=== PATIENT | male | born 1980 | race Caucasian/White ===

== ENCOUNTER 2016-10-05 22:51 | Emergency (ER) | payer SELFPAY ==
[~2016-10-05] VITALS: Ht 172.7 cm; Wt 82.9 kg
[~2016-10-05 22:51] MED LIST: MMW SSP; PENI500T PO; PERC10TA26 PO; SULF1TAB47 PO; TRAM50 PO
[2016-10-05 23:01] VITALS: BP 139/99; PULSE 93; RESP 20; TEMP 98.6
[2016-10-06] MEDS ORDERED: IBUP-232 PO (07:56)
[2016-10-06] MEDS ORDERED: CLIN1CAP5 PO (07:56)
[2016-10-06] MEDS ORDERED: NORC5TAB PO (07:56)
== END 2016-10-06 00:07 | disposition left against medical advice (07) ==
LOC: PHED 22:51
DX: R68.84 Jaw pain (principal); Z53.21 Procedure and treatment not carried out due to patient leaving prior to being seen by health care provider
CPT/HCPCS: 99281

== ENCOUNTER 2016-10-06 07:40 | Emergency (ER) | payer SELFPAY ==
[~2016-10-06] VITALS: Ht 172.7 cm; Wt 82.0 kg
[2016-10-06 07:45] VITALS: BP 166/100; PULSE 91; RESP 18; TEMP 99.4; O2SAT 98
[2016-10-06] MEDS ORDERED: CLIN1CAP5 PO (07:56)
[2016-10-06] MEDS ORDERED: NORC5TAB PO (07:56)
[2016-10-06] MEDS ORDERED: IBUP-232 PO (07:56)
--- NOTE | 2016-10-06 07:56 | PD ---
HPI Chief Complaint: dental pain Time Seen by Provider: 07:44 Travel History International Travel<30 days: No Contact w/Intl Traveler<30days: No Traveled to known affect area: No History of Present Illness HPI 36-year-old male complains of dental pain. Patient states the pain started 4 days ago. Patient states the pain is sharp pain localized to left upper gum and left lower gum area. Patient denies any pain radiation. Patient denies any fever chills. PFSH Social History Alcohol Use: Yes Tobacco Use: Yes (1 PPD) Substance Use: No Allergies-Medications (Allergen,Severity, Reaction): Coded Allergies: Penicillins (Verified Allergy, Intermediate, GI UPSET, 10/06/16) Reported Meds & Prescriptions Reported Meds & Active Scripts Active Clindamycin (Clindamycin HCl) 150 Mg Cap 2 Tab PO Q6H Strunk (Hydrocodone-Acetaminophen) 5-325 mg Tab 1 Tab PO Q6H PRN Ibuprofen 600 Mg Tab 600 Mg PO Q8H PRN Ultram (Tramadol HCl) 50 Mg Tab 1 Tab PO Q6 PRN FOR PAIN Magic Mouthwash-Diphenhy Formula (Lidocaine/Diphenhydr/Alum/Mg/Simeth) Ml 5-10 Ml SSP 5 TIMES A DAY MAGIC MOUTHWASH CONTAINS 1/3 VISCOUS LIDOCAINE, 1/3 MAALOX, AND 1/3 BENADRYL. Pen Vk (Penicillin V Potassium) 500 Mg Tab 500 Mg PO QID Bactrim Ds (Trimethoprim/Sulfamethoxazole) Tab 1 Tab PO BID 10 Days Reported Percocet 10/650 (Oxycodone/Acetaminophen) Tab 1 Tab PO Q6HPRN FOR PAIN Review of Systems General / Constitutional: No: Fever Eyes: No: Visual changes HENT: No: Headaches Cardiovascular: No: Chest Pain or Discomfort Respiratory: No: Shortness of Breath Gastrointestinal: No: Abdominal Pain Genitourinary: No: Dysuria Musculoskeletal: No: Pain Skin: No Rash Neurologic: No: Weakness Psychiatric: No: Depression Endocrine: No: Polydipsia Hematologic/Lymphatic: No: Easy Bruising Physical Exam Narrative GENERAL: Well-nourished, well-developed patient. SKIN: Focused skin assessment warm/dry. HEAD: Normocephalic. EYES: No scleral icterus. No injection or drainage. NECK: Supple, trachea midline. No JVD or lymphadenopathy. CARDIOVASCULAR: Regular rate and rhythm without murmurs, gallops, or rubs. RESPIRATORY: Breath sounds equal bilaterally. No accessory muscle use. GASTROINTESTINAL: Abdomen soft, non-tender, nondistended. MUSCULOSKELETAL: No cyanosis, or edema. BACK: Nontender without obvious deformity. No CVA tenderness. Patient has severe dental caries left upper gum left lower gum area. No soft tissue swelling. Tenderness on palpation of the left upper and lower gum area. Data Data Last Documented VS Vital Signs Date Time Temp Pulse Resp B/P (MAP) Pulse Ox O2 Delivery O2 Flow Rate FiO2 10/06/16 07:45 99.4 91 18 166/100 (122) 98 MDM Medical Decision Making Medical Screen Exam Complete: Yes Emergency Medical Condition: Yes Differential Diagnosis Differential diagnosis including dental pain, dental abscess. Narrative Course 36-year-old male with dental pain. Diagnosis Primary Impression: Pain, dental Additional Instructions: Take medications as directed. Follow-up with a dentist. Med/Other Pt SpecificInfo: Prescription(s) given Scripts Clindamycin (Clindamycin) 150 Mg Cap 2 TAB PO Q6H for Infection, #80 CAP 0 Refills Prov: Vinicius Alamo MD 10/06/16 Hydrocodone-Acetaminophen (Strunk) 5-325 mg Tab 1 TAB PO Q6H Y for PAIN, #20 TAB 0 Refills Prov: Vinicius Alamo MD 10/06/16 Ibuprofen (Ibuprofen) 600 Mg Tab 600 MG PO Q8H Y for PAIN, #60 TAB 0 Refills Prov: Vinicius Alamo MD 10/06/16 Disposition: 01 DISCHARGE HOME Condition: Stable Vinicius Alamo MD Oct 06, 2016 07:56
== END 2016-10-06 08:06 | disposition home or self-care (01) ==
LOC: PHED 07:40
DX: K08.89 Other specified disorders of teeth and supporting structures (principal); K02.9 Dental caries, unspecified; F17.200 Nicotine dependence, unspecified, uncomplicated
CPT/HCPCS: 99284